=== PATIENT | female | born 1960 | race Caucasian/White ===

== ENCOUNTER 2016-06-21 10:01 | Emergency (ER) | payer MEDICARE, MEDICAID ==
[~2016-06-21] VITALS: Ht 170.2 cm; Wt 122.5 kg
[~2016-06-21 10:01] MED LIST: AC325T PO; ALBU8.5H2 IH; ALBU8CC IH; AMN100CCIP PO; ARIP15TA3 PO; ARIP30TA PO; CALC1POW TOP; CEFD300C PO; CEPH-507 PO; CHOL10002 PO; CHOL2000 PO; CLON0.5T3 PO; CLOT15CR5 TP; CLOT60SP TP; CLPD75T PO; CPR500T PO; CYAN10004 IM; CYCL10TA45 PO; DOCU100C8 PO; ELET40TA PO; FLUC150T PO; FLUC200T5 PO; FLUT15CR TOP; FRSM40T PO; FURO20TA4 PO; FURO40TA4 PO; HYDR-2651 PO; HYDR-3702 PO; HYDR-700 PO; IPRA3AMP11 INH; LORA10TA7 PO; LOSA100T8 PO; LSRT50T PO; LVCR25100 PO; LVT.05T PO; MAGN400O7 PO; METO-311 PO; METO25TA2 PO; MTC10T PO; MTC5V480 PO; MTP50T PO; NF-SOLIF5T PO; NFLYR75C PO; NITR0.3T6 SL; NITR0.3T7 SL; NITR1PAT57 TD; NST15PW TOP; NTR.4SL SL; NYST60PO TOP; OMEP40CA36 PO; OXB5T PO; OXYB5TAB9 PO; OXYC1TAB87 PO; PANT40TA3 PO; PENT400T2 PO; POLY17PO2 PO; POTA10CA43 PO; PRAM0.257 PO; PRAV20TA PO; PRED20TA PO; PREG150C PO; PRM25T PO; PROM25SU10 PR; PROM25TA14 PO; ROPI0.5T4 PO; SITA100T PO; SPRN25T PO; TOLN150S2 TP; TOPI50TA5 PO; TRAZ100T92 PO; TRM50T PO; [UNRECOGNIZED DRUG - CODE] TOP
--- NOTE | 2016-06-21 10:15 | NUR ---
Patient attempting to provide urine specimen.
--- NOTE | 2016-06-21 10:22 | NUR ---
Urine specimen provided by patient and now picked up by lab staff.
[2016-06-21] MEDS ORDERED: SOLI5TAB2 PO (10:40)
[2016-06-21] MEDS ORDERED: HYDROcodone/APAP 5 MG/325 MG (NORCO) TAB PO ONE (10:50)
[2016-06-21 10:57] LABS: BILIRUBIN,URINE Negative (Negative); CLARITY,URINE Clear; COLOR,URINE Yellow; GLUCOSE, URINE (UA) Negative (Negative); LEUKOCYTE ESTERASE ,URINE Negative (Negative); PH,URINE 5.5 (5.0 - 8.0); UROBILINOGEN,URINE 0.2 mg/dL (0.2-1.0)
[2016-06-21 11:41] LABS: BASOPHILS % (AUTO) 0 % (0-2); EOSINOPHILS # (AUTO) 0.1 10^3uL; EOSINOPHILS % (AUTO) 2 % (0-4); LYMPHOCYTES # (AUTO) 1.5 X10^3; MEAN CORPUSCULAR HEMOGLOBIN 27.3 PG (26.0-34.0); MEAN CORPUSCULAR HGB CONC 32.6 g/dL (31.0-37.0); MEAN CORPUSCULAR VOLUME 84 FL (80-100); MEAN PLATELET VOLUME 10.3 FL (6.0-9.5); MONOCYTES # (AUTO) 0.4 X10^3; MONOCYTES % (AUTO) 6 % (3-11); NEUTROPHILS # (AUTO) 3.9 X10^3; NEUTROPHILS % (AUTO) 65 % (51-67); PLATELET COUNT 227 10^3uL (150-450); WHITE BLOOD COUNT 5.93 10^3uL (4.0-11.0)
[2016-06-21 11:52] LABS: ALBUMIN 3.9 g/dL (3.4-5.0); ANION GAP 14.4 MEQ/L (3-15); CALCULATED IONIZED CALCIUM 4.3 mg/dL (3.8-4.6); TOTAL PROTEIN 6.5 g/dL (6.4-8.5)
--- NOTE | 2016-06-21 12:14 | NUR ---
Patient informed staff still waiting on Radiology to do her exam. Patient verbalizes understanding and says she is "okay". Another blanket provided as per pt request.
--- NOTE | 2016-06-21 13:13 | Diagnostic Imaging Report ---
INDICATION: Generalized abdominal pain. DISCUSSION: Supine and upright views of the abdomen were obtained, comparison 05/17/2016. The lungs remain mildly hyperinflated. No focal consolidation or pleural fluid. Normal heart size. Left chest wall [id number] is stable. No evidence of pneumatosis or pneumoperitoneum. There is gas and stool noted within the colon. The colonic stool has decreased from prior exam with mild residual still noted within the ascending colon. No obstruction. No abnormal small bowel loops are identified. No acute osseous abnormality. IMPRESSION: 1. Mild constipation within the proximal colon, decreased from prior exam. Dictated by: Dictated on workstation # [id number]
--- NOTE | 2016-06-21 13:45 | NUR ---
PATIENT HAS BEEN UP TO TOILET AFTER HOLDING ENEMA " LONG I COULD". HAS APPROX 1 CUP OF FORMED/UNFORMED STOOL IN TOILET. RESULT REPORTED TO DR. SWAN.
[2016-06-21] MEDS ORDERED: POLY119P PO (14:27)
[2016-06-21 17:52] VITALS: BP 132/74
[2016-09-04] MEDS ORDERED: LVF500T PO (22:21)
[2016-09-04] MEDS ORDERED: CLIN-79 PO (22:21)
== END 2016-06-21 14:45 | disposition home or self-care (01) ==
LOC: ED 10:03
DX: R30.0 Dysuria (principal); R10.84 Generalized abdominal pain
CPT/HCPCS: 36415; 51798; 74022; 80053; 81003; 82274; 83690; 85025; 86140; 99283; A9270

== ENCOUNTER 2016-06-24 09:34 | Emergency (ER) | payer MEDICARE, MEDICAID ==
[~2016-06-24] VITALS: Ht 170.2 cm; Wt 121.0 kg
[~2016-06-24 09:34] MED LIST changes: +POLY119P PO; +SOLI5TAB2 PO
[2016-06-24] MEDS ORDERED: ONDANSETRON 2 MG/ML (Z0FRAN) 2 ML VIAL IV ONE (10:25)
[2016-06-24] MEDS ORDERED: SODIUM CHLORIDE FLUSH 10 ML SYR IV PRN (10:40)
[2016-06-24 10:48] LABS: BILIRUBIN,URINE Negative (Negative); CLARITY,URINE Cloudy; COLOR,URINE Yellow; GLUCOSE, URINE (UA) Negative (Negative); LEUKOCYTE ESTERASE ,URINE Trace (Negative); PH,URINE 5.5 (5.0 - 8.0); UROBILINOGEN,URINE 0.2 mg/dL (0.2-1.0)
[2016-06-24 10:54] LABS: BASOPHILS % (AUTO) 0 % (0-2); EOSINOPHILS # (AUTO) 0.2 10^3uL; EOSINOPHILS % (AUTO) 2 % (0-4); LYMPHOCYTES # (AUTO) 1.9 X10^3; MEAN CORPUSCULAR HGB CONC 32.2 g/dL (31.0-37.0); MEAN CORPUSCULAR VOLUME 84 FL (80-100); MEAN PLATELET VOLUME 10.6 FL (6.0-9.5); MONOCYTES # (AUTO) 0.4 X10^3; MONOCYTES % (AUTO) 6 % (3-11); NEUTROPHILS % (AUTO) 62 % (51-67); PLATELET COUNT 224 10^3uL (150-450); WHITE BLOOD COUNT 6.42 10^3uL (4.0-11.0)
[2016-06-24 10:59] LABS: ALBUMIN 3.9 g/dL (3.4-5.0); ANION GAP 14.1 MEQ/L (3-15); CALCULATED IONIZED CALCIUM 4.1 mg/dL (3.8-4.6); TOTAL PROTEIN 6.9 g/dL (6.4-8.5)
[2016-06-24] MEDS ORDERED: HYDR-700 PO (11:10)
[2016-06-24 11:15] LABS: CALCIUM OXALATE CRYSTALS,UR 3+ /HPF; URINE CENTRIFUGED VOLUME 12 mL
--- NOTE | 2016-06-24 11:27 | Diagnostic Imaging Report ---
PROCEDURE: CT abdomen and pelvis without contrast. TECHNIQUE: Multiple contiguous axial images were obtained through the abdomen and pelvis without the use of intravenous contrast. INDICATION: Abdominal pain. FINDINGS: The lung bases are clear. Liver appears normal. The gallbladder is decompressed. The pancreas is normal. The spleen is not enlarged. The adrenals and kidneys appear normal. This is calcific atherosclerosis of the aorta with no aneurysm. There is a small ventral hernia in the left lower abdomen at the level of the umbilicus. The uterus is surgically absent. Urinary bladder appears normal. There is no intraperitoneal free air or free fluid. IMPRESSION: Small left lower quadrant ventral hernia. CT abdomen and pelvis otherwise unremarkable. Dictated by: Dictated on workstation # [id number]
[2016-06-24] MEDS ORDERED: PANT40TA3 PO (11:58)
[2016-06-24] MEDS ORDERED: LSRT50T PO (11:58)
[2016-06-24] MEDS ORDERED: CLOP75TA28 PO (11:58)
[2016-06-24] MEDS ORDERED: SULF1TAB35 PO (13:15)
[2016-06-24 14:28] VITALS: BP 143/88
[2016-09-04] MEDS ORDERED: LVF500T PO (22:21)
[2016-09-04] MEDS ORDERED: CLIN-79 PO (22:21)
== END 2016-06-24 13:59 | disposition home or self-care (01) ==
LOC: ED 09:35
DX: R19.7 Diarrhea, unspecified (principal); N39.0 Urinary tract infection, site not specified; R10.84 Generalized abdominal pain
CPT/HCPCS: 36415; 74176; 80053; 81003; 81015; 82274; 83690; 85025; 87045; 87046; 87077; 87088; 87147; 87177; 87186; 87209; 87324; 87449; 89055; 96361; 96374; 99283; J1642; J2405; J7030

== ENCOUNTER → 2016-07-01 | Outpatient (CLI) | payer MEDICARE, MEDICAID ==
[~2016-07-01] MED LIST changes: +CLIN-79 PO; +CLOP75TA28 PO; +LVF500T PO; +SULF1TAB35 PO
--- NOTE | 2016-07-01 13:01 | Diagnostic Imaging Report ---
PROCEDURE: MRI left upper extremity without contrast. TECHNIQUE: Multiplanar, multisequence MR imaging of the left shoulder was performed without contrast. COMPARISON: None available. INDICATION: Left shoulder pain. Recent fall. FINDINGS: Rotator cuff: There is mild tendinopathy of the supraspinatus, infraspinatus and subscapularis. There is superimposed low-grade partial-thickness tearing of the bursal fibers of the posterior supraspinatus and anterior infraspinatus. There is also low-grade partial-thickness tearing of the deep superior fibers of the subscapularis. The teres minor is normal. No rotator cuff muscle atrophy. Glenoid labrum: There is a tear in the superior labrum near the biceps anchor with an associated multilobulated paralabral cyst present. More lateral component of the cyst measures approximately 12 x 5 mm and is located at the level of the glenoid rim. There is an additional component of the cyst which is located in the supratubercle region of the glenoid and measures 12 x 6 mm. There is no cyst extension into the suprascapular notch. There is no evidence of denervation injury of the rotator cuff musculature. In the posterior labrum, there is mild degenerative surface fraying of free edge. Long head of biceps: Long head of the biceps is normal in position and intact. Paralabral cyst does not extend into the anchor of the biceps tendon. Bones and cartilage: No fracture or Hill-Sachs deformity of the humeral head. The acromioclavicular joint is normal in alignment with mild degenerative capsular hypertrophy. No high-grade chondromalacia in the glenohumeral joint. Soft tissues: No MRI findings to suggest adhesive capsulitis. No glenohumeral joint effusion. No significant subacromial/subdeltoid bursitis. IMPRESSION: 1. Superior labral tear with a multilobulated paralabral cyst at the superior aspect of the glenoid. The two dominant components of the cyst each measure approximately 12 x 6 mm, as described above. The paralabral cyst does not extend into the suprascapular notch and there is no evidence of rotator cuff muscle denervation injury. 2. There is tendinopathy of the supraspinatus, infraspinatus and subscapularis. There is superimposed low-grade partial-thickness tearing of the bursal surface fibers of the supraspinatus and infraspinatus and of the deep fibers of the subscapularis. No high-grade partial or full-thickness rotator cuff tear. Dictated by: Dictated on workstation # [id number]
== END ==
LOC: RAD 09:02
PROVIDERS: ATTEND Orthopaedic Surgery
DX: M25.512 Pain in left shoulder (principal); M75.112 Incomplete rotator cuff tear or rupture of left shoulder, not specified as traumatic
CPT/HCPCS: 73221

== ENCOUNTER 2016-07-28 12:35 | Emergency (ER) | payer MEDICARE, MEDICAID ==
[~2016-07-28] VITALS: Ht 170.2 cm; Wt 124.4 kg
[2016-07-28 13:32] VITALS: BP 145/108
== END 2016-07-28 13:30 | disposition home or self-care (01) ==
LOC: ED 12:36
DX: I99.8 Other disorder of circulatory system (principal); R23.3 Spontaneous ecchymoses
CPT/HCPCS: 99281; 99282

== ENCOUNTER → 2016-07-28 | Outpatient (CLI) | payer MEDICARE, MEDICAID ==
[2016-07-28 12:40] LABS: MEAN CORPUSCULAR HEMOGLOBIN 27.3 PG (26.0-34.0); MEAN CORPUSCULAR HGB CONC 33.2 g/dL (31.0-37.0); MEAN CORPUSCULAR VOLUME 82 FL (80-100); MEAN PLATELET VOLUME 10.2 FL (6.0-9.5); PLATELET COUNT 219 10^3uL (150-450); WHITE BLOOD COUNT 6.91 10^3uL (4.0-11.0)
[2016-07-28 13:17] LABS: ALBUMIN 4.4 g/dL (3.4-5.0); ANION GAP 16.7 MEQ/L (3-15); TOTAL PROTEIN 7.7 g/dL (6.4-8.5)
[2016-07-28 13:28] LABS: ERYTHROCYTE SEDIMENTATION RT* 18 mm/hr (0-23)
[2016-07-28 13:32] LABS: BAND NEUTROPHILS % 0 % (0-6); EOSINOPHILS % 0 % (0-4); LYMPHOCYTES # 2.1 #; MONOCYTES # 0.2 #; MONOCYTES % 4 % (3-11); RBC MORPH NORMAL (NORMAL); SEGMENTED NEUTROPHILS % 66 % (51-67); TOTAL CELLS COUNTED 100
== END ==
LOC: LAB 12:18
PROVIDERS: ATTEND Internal Medicine Infectious Disease
DX: L03.115 Cellulitis of right lower limb (principal); I89.0 Lymphedema, not elsewhere classified; Z79.2 Long term (current) use of antibiotics
CPT/HCPCS: 36415; 80053; 85007; 85027; 85652; 86140

== ENCOUNTER → 2016-08-09 | Outpatient (CLI) | payer MEDICARE, MEDICAID | LOC: LAB 08:20 | PROVIDERS: ATTEND Orthopaedic Surgery | DX: Z86.14 Personal history of Methicillin resistant Staphylococcus aureus infection (principal) | CPT/HCPCS: 87081 ==

== ENCOUNTER → 2016-08-20 | Outpatient (CLI) | payer MEDICARE, MEDICAID ==
[2016-08-20 15:10] LABS: ANION GAP 13.4 MEQ/L (3-15)
== END ==
LOC: LAB 14:17
PROVIDERS: ATTEND Orthopaedic Surgery
DX: I10 Essential (primary) hypertension (principal)
CPT/HCPCS: 36415; 80048; 93005

== ENCOUNTER → 2016-08-23 | Outpatient (CLI) | payer MEDICARE, MEDICAID | LOC: LAB 09:37 | PROVIDERS: ATTEND Orthopaedic Surgery | DX: Z86.14 Personal history of Methicillin resistant Staphylococcus aureus infection (principal) | CPT/HCPCS: 87081 ==

== ENCOUNTER 2016-09-04 19:47 | Emergency (ER) | payer MEDICARE, MEDICAID ==
[~2016-09-04] VITALS: Ht 170.2 cm; Wt 129.6 kg
[2016-09-04 20:40] LABS: BASOPHILS % (AUTO) 0 % (0-2); EOSINOPHILS # (AUTO) 0.2 10^3uL; EOSINOPHILS % (AUTO) 2 % (0-4); MEAN CORPUSCULAR VOLUME 84 FL (80-100); MEAN PLATELET VOLUME 10.3 FL (6.0-9.5); MONOCYTES # (AUTO) 0.4 X10^3; MONOCYTES % (AUTO) 6 % (3-11); NEUTROPHILS # (AUTO) 4.9 X10^3; NEUTROPHILS % (AUTO) 65 % (51-67); PLATELET COUNT 229 10^3uL (150-450)
[2016-09-04 20:41] LABS: MEAN CORPUSCULAR HEMOGLOBIN 26.8 PG (26.0-34.0)
[2016-09-04 20:50] LABS: ALBUMIN 3.6 g/dL (3.4-5.0); ANION GAP 11.4 MEQ/L (3-15); CALCULATED IONIZED CALCIUM 4.2 mg/dL (3.8-4.6); TOTAL PROTEIN 6.7 g/dL (6.4-8.5)
[2016-09-04] MEDS ORDERED: CLINDAMYCIN 150 MG (CLEOCIN) CAP PO ONE (22:15)
[2016-09-04] MEDS ORDERED: LEVOFLOXACIN 250 MG TAB (LEVAQUIN) PO SCH (22:15)
[2016-09-04 22:39] VITALS: BP 141/90
== END 2016-09-04 22:35 | disposition home or self-care (01) ==
LOC: ED 19:48
DX: L03.115 Cellulitis of right lower limb (principal); Z86.14 Personal history of Methicillin resistant Staphylococcus aureus infection
CPT/HCPCS: 36415; 80053; 85025; 87070; 99283; A9270; 87077; 87147; 87186

== ENCOUNTER → 2016-10-01 | Outpatient (CLI) | payer MEDICARE, MEDICAID ==
[~2016-10-01] MED LIST changes: -TOPI50TA5 PO; +TOPI50TA86 PO
--- NOTE | 2016-10-01 16:47 | Diagnostic Imaging Report ---
Indication: Back pain. Scoliosis 3 views of the thoracic spine shows mild dextroscoliosis of less than 10?. There is dorsal kyphosis but no spondylolisthesis is seen. There is only mild spondylosis. No fracture is evident. Impression: There is mild scoliosis with mild dorsal kyphosis. No acute abnormality is evident. Dictated by: Dictated on workstation # [id number]
--- NOTE | 2016-10-01 16:47 | Diagnostic Imaging Report ---
Indication: Back pain 2 views of the lumbar spine shows normal height and alignment of the vertebral bodies. Disc spaces are well-maintained. There is no spondylosis. There is no fracture. Impression: No significant abnormality is seen. Dictated by: Dictated on workstation # [id number]
--- NOTE | 2016-10-01 16:48 | Diagnostic Imaging Report ---
Indication: Neck pain 3 views of the cervical spine shows normal height and alignment of the vertebral bodies. Disc spaces are well-maintained. There is no spondylosis. There is no fracture. Impression: No significant abnormality is seen. Dictated by: Dictated on workstation # [id number]
== END ==
LOC: RAD 16:08
PROVIDERS: ATTEND Physician Assistant
DX: M54.89 Other dorsalgia (principal)
CPT/HCPCS: 72040; 72072; 72100

== ENCOUNTER 2016-10-13 07:58 | Day surgery (SDC) | payer MEDICARE, MEDICAID ==
--- NOTE | 2016-10-11 08:37 | NUR ---
PATIENT SCHEDULED TO BE HERE AT 0745. PATIENT HAS STILL NOT ARRIVED. ATTEMPT #2 TO GET AHOLD OF PATIENT WITH NO ANSWER. ANSWERING MACHINE DOES NOT SAY PATIENT'S NAME. NO MESSAGE LEFT.
[~2016-10-13] VITALS: Ht 170.2 cm; Wt 106.0 kg
[2016-10-13] VITALS (7 sets, daily range): BP systolic 134–178; BP diastolic 88–109
[~2016-10-13 07:58] MED LIST changes: +ALFENTANIL 500 MCG/ML (ALFENTA) 5 ML AMP IV ONE; +AMIT100T2 PO; +LACTATED RINGERS 1,000 ML IV SCH; +MIDAZOLAM 2 MG/2 ML (VERSED) VIAL ONE; +MIRA50TA PO; +PROPOFOL 20 ML IV ONE; +SODIUM CHLORIDE FLUSH 3 ML SYR IV PRN
[2016-10-13] MEDS ORDERED: MIDAZOLAM 2 MG/2 ML (VERSED) VIAL ONE (09:18)
[2016-10-13] MEDS ORDERED: PROPOFOL 20 ML IV ONE (09:19)
[2016-10-13] MEDS ORDERED: ALFENTANIL 500 MCG/ML (ALFENTA) 5 ML AMP IV ONE (09:19)
--- NOTE | 2016-10-13 13:38 | OPERATIVE REPORT ---
DATE OF OPERATION: 10/13/2016 PRE-OPERATIVE DIAGNOSIS: 1. Colon screening. 2. Family history of colon polyps. POST-OPERATIVE DIAGNOSIS: Normal colon OPERATIVE PROCEDURE: Total colonoscopy SURGEON: Brennan Dyer MD ANESTHESIA: IV conscious sedation, Monitored Anesthesia Services POSITION: Left lateral decubitus FINDINGS: 1. Normal colon mucosa. 2. Fair prep (after double colonoscopy prep). OPERATIVE NOTE: Following satisfactory induction of analgesia a digital rectal exam was performed. This revealed normal sphincter tone with no palpable rectal mass. Next the colonoscope was introduced per rectum and advanced under CO2 insufflation and direct vision to the cecum. The cecum was identified by convergence of the teniae, ileocecal valve, and palpation/transillumination of the right lower quadrant. Warp Tension Tester photographs were obtained. There were several areas of pooled liquid stool that required suction and irrigation, however, this allowed satisfactory inspection of the colon mucosa. The above areas were again carefully inspected as colonoscope was slowly withdrawn. Retroflexed view of the rectum was normal. Excess insufflated CO2 was evacuated and the scope removed. The patient tolerated the procedure well and transferred to recovery in stable condition. RECOMMENDATIONS: In the absence of symptoms, I would recommend repeat screening colonoscopy in 5 years due to her family history. In addition, I would recommend double (over 2 days) prep prior to colonoscopy in the future.
== END 2016-10-13 13:40 | disposition home or self-care (01) ==
LOC: ASC 07:58
PROVIDERS: ATTEND Surgery
DX: Z12.11 Encounter for screening for malignant neoplasm of colon (principal); Z83.71 Family history of colonic polyps; F41.9 Anxiety disorder, unspecified; I10 Essential (primary) hypertension; G47.33 Obstructive sleep apnea (adult) (pediatric); E11.9 Type 2 diabetes mellitus without complications; E03.9 Hypothyroidism, unspecified; J44.9 Chronic obstructive pulmonary disease, unspecified; J45.909 Unspecified asthma, uncomplicated; Z79.02 Long term (current) use of antithrombotics/antiplatelets; Z79.84 Long term (current) use of oral hypoglycemic drugs
CPT/HCPCS: G0105; J2250; J7120

== ENCOUNTER 2016-10-31 23:37 | Emergency (ER) | payer MEDICARE, MEDICAID ==
[~2016-10-31] VITALS: Ht 170.2 cm; Wt 131.8 kg
[~2016-10-31 23:37] MED LIST changes: -ALFENTANIL 500 MCG/ML (ALFENTA) 5 ML AMP IV ONE; -LACTATED RINGERS 1,000 ML IV SCH; -MIDAZOLAM 2 MG/2 ML (VERSED) VIAL ONE; -PROPOFOL 20 ML IV ONE; -SODIUM CHLORIDE FLUSH 3 ML SYR IV PRN
--- OUTSIDE RECORDS SUMMARY | 2016-10-31 23:43 | XMS REPORT | Continuity of Care Document ---
Author Author [facility] Organization [facility] Address Unknown Phone Unavailable Care Team Providers Care Technical Operations Manager Name Role Phone JOELLEN GUAMAN MD PCP [phone] Insurance Providers Payer Name Policy Number Subscriber Name Relationship Medicare A And B [id number] Josiane Ashley 18 Self / Same As Patient [facility] [employer] [id number] Josiane Ashley 18 Self / Same As Patient Advance Directives Directive Response Recorded Date/Time Advanced Directives No 01/20/16 11:15pm Problems Active Problems Medical Problem Onset Date Status Acute cervical myofascial strain Unknown Acute Acute thoracic myofascial strain Unknown Acute Bilateral cellulitis of lower leg Unknown Chronic Bradycardia with 41-50 beats per minute ~04/07/2015 Acute Chronic neck and back pain Unknown Acute Colitis Unknown Acute Difficulty walking Unknown Acute Dysphagia Unknown Acute Hypotension ~04/07/2015 Acute Tinea corporis Unknown Resolved UTI (urinary tract infection) Unknown Resolved Varicose veins of left lower extremity ~04/07/2015 Acute Weakness of both arms Unknown Acute Weakness of both lower extremities Unknown Acute Medications Current Home Medications Medication Dose Units Route Directions Days/Qty Instructions Start Date Levothyroxine Sodium (Synthroid) 50 Mcg 50 Mcg ORAL Daily@0700 01/25 Clonazepam 0.5 Mg 0.5 Mg ORAL Twice A Day 01/25/15 Topiramate 50 Mg 50 Mg ORAL Twice A Day 01/25/15 Cyclobenzaprine Hcl 10 Mg 10 Mg ORAL Twice A Day 01/25/15 Promethazine Hcl 25 Mg 25 Mg ORAL Every 4HRS as needed for Nausea/Vomiting 01/25/15 Cyanocobalamin (Vitamin B-12) 1,000 Mcg/1 Ml 1,000 Mcg INTAMUSCULAR Monthly 01/25/15 Nystatin 60 Gm 1 Applic TOPICAL Three Times A Day as needed for Redness 01/25/15 Aripiprazole 30 Mg 30 Mg ORAL Daily 04/07/15 Pravastatin Sodium 20 Mg 20 Mg ORAL Bedtime 10/08/15 Losartan Potassium (Cozaar) 100 Mg 100 Mg ORAL Daily 10/08/15 Metoclopramide Hcl 10 Mg 10 Mg ORAL Three Times A Day 10/08/15 Furosemide 40 Mg 40 Mg ORAL Daily 10/08/15 Loratadine 10 Mg 10 Mg ORAL Daily as needed for Allergies 10/08/15 Spironolactone (Aldactone) 25 Mg 25 Mg ORAL Daily 10/08/15 Trazodone Hcl 100 Mg 200 Mg ORAL Bedtime 10/08/15 Albuterol Sulfate 8.5 Gm 2 Puff RESPIRATORY (INHALATION) Twice A Day as needed for Dyspnea 10/10/15 Clopidogrel Bisulfate (Plavix) 75 Mg 75 Mg ORAL Daily@1200 10/10/15 Pantoprazole Sod 40 Mg 40 Mg ORAL Daily@0700 01/20/16 Oxybutynin Chloride 5 Mg 5 Mg ORAL Three Times A Day 01/20/16 Cholecalciferol 1,000 Unit 1,000 Unit ORAL Daily 01/21/16 Nitroglycerin (Nitrostat) 0.4 Mg 0.4 Mg SUBLINGUAL Every 5 Min as needed for Chest Pain 01/21/16 Metoprolol Tartrate 25 Mg 25 Mg ORAL Twice A Day 01/21/16 Pregabalin 150 Mg 150 Mg ORAL Twice A Day 01/21/16 Pramipexole Di-Hcl 0.25 Mg 0.25 Mg ORAL Three Times A Day 01/21/16 Past Home Medications Medication Directions Ordered Status Omeprazole 40 Mg Capsule.dr, 20 Mg Oral Twice A Day 01/25/15 Discontinued Sitagliptin Phosphate 100 Mg Tablet, 100 Mg Oral As Directed 01/25/15 Discontinued Furosemide 40 Mg Tablet, 40 Mg Oral As Directed 01/25/15 Discontinued Eletriptan Hydrobromide 40 Mg Tablet, 40 Mg Oral As Directed 01/25/15 Discontinued Potassium Chloride 10 Meq Capsule.er, 10 Meq Oral Daily 01/25/15 Discontinued Aripiprazole 15 Mg Tablet, 15 Mg Oral As Directed 01/25/15 Discontinued Ciprofloxacin 500 Mg Tablet, 500 Mg Oral As Directed 01/25/15 Discontinued Metoclopramide Hcl 10 Mg Tablet, 10 Mg Oral Three Times A Day 01/25/15 Discontinued Promethazine Hcl 25 Mg Supp, 25 Mg Rectal As Needed 01/25/15 Discontinued Pregabalin 75 Mg Capsule, 150 Mg Oral Twice A Day 01/25/15 Discontinued Cholecalciferol (Vitamin D3) 2,000 Unit Capsule, 1000 Unit Oral Daily Discontinued Prednisone 20 Mg Tablet, 20 Mg Oral Daily 02/18/15 Discontinued Hydroxyzine Hcl 25 Mg Tablet, 25 Mg Oral Every 8HRS as needed for Itching 07/04 Discontinued Hydrocodone Bit/Acetaminophen 1 Each Tablet, 1 Each Oral Every 4HRS as needed for Severe Pain 02/18/15 Discontinued Fluconazole 150 Mg Tablet, 150 Mg Oral Daily 02/18/15 Discontinued Cephalexin 500 Mg Capsule, 500 Mg Oral Three Times A Day 03/09/15 Discontinued Cefdinir (Omnicef) 300 Mg Capsule, 300 Mg Oral Twice A Day 03/24/15 Discontinued Oxybutynin Chloride 5 Mg Tab, 5 Mg Oral Daily 06/17/15 Discontinued Acetaminophen/Hydrocodone Bitart 1 Each Tablet, 1-2 Tab Oral Every 6 Hours as needed for Pain 06/17/15 Discontinued Oxycodone/Acetaminophen 1 Tab Tablet, 1-2 Tab Oral Three Times A Day as needed for Pain 06/22/15 Discontinued Clopidogrel Bisulfate (Plavix) 75 Mg Tablet, 75 Mg Oral Daily 10/02/15 Discontinued Calcium Acetate/Aluminum Sulf 1 Each Powd.pack, 1 Each Topical As Needed Discontinued Albuterol Sulfate 90 Mcg/1 Puff Hfa.aer.ad, 90 Mcg Respiratory (Inhalation) As Needed 10/08/15 Discontinued Tramadol Hcl (Ultram) 50 Mg Tablet, 1-2 Tab Oral Every 6 Hours as needed for Pain 10/08/15 Discontinued Carbidopa/Levodopa (Sinemet 25MG-100MG) 1 Each Tablet, 1 Ea Oral Twice A Day 10/08/15 Discontinued Metoprolol Tartrate (Lopressor) 50 Mg Tablet, 50 Mg Oral Daily 10/08/15 Discontinued Nitroglycerin 1 Each Patch.td24, 1 Each Transdermal Daily 10/08/15 Discontinued Pentoxifylline 400 Mg Tablet.er, 400 Mg Oral Twice A Day 10/08/15 Discontinued Pramipexole Di-Hcl 0.25 Mg Tablet, 0.25 Mg Oral Three Times A Day 01/20/16 Discontinued Ropinirole Hcl (Requip) 0.5 Mg Tablet, 0.5 Mg Oral Three Times A Day Discontinued Nitroglycerin (Nitroquick) 0.3 Mg Tab.subl, 0.3 Mg Sublingual As Directed 08/05 Discontinued Fluconazole 200 Mg Tablet, 200 Mg Oral As Directed 01/20/16 Discontinued Hydroxyzine Hcl 25 Mg Tablet, 25 Mg Oral Twice A Day 01/20/16 Discontinued Social History Social History Problem Response Recorded Date/Time Onset Date Status Exposure to occupational hazards No 01/20/2016 11:15pm Query Response Start Date Stop Date Smoking Status Former smoker Hospital Discharge Instructions Current inpatient/outpatient. Discharge instructions are currently unavailable. Plan of Care Prescriptions Functional Status No functional status results. Allergies, Adverse Reactions, Alerts Allergen Type Severity Reaction Status Last Updated Aspirin Allergy Unknown Active 12/25/15 Gabapentin Allergy Unknown Active 12/25/15 ketorolac Allergy Unknown Active 12/25/15 eszopiclone Allergy Unknown Active 12/25/15 Pear Allergy Unknown Active 01/20/16 Blood Thinners Allergy Unknown Active 01/25/15 Immunizations Name Given Type Status Date Influenza Vaccine Received if Current 02/16/15 Historical Historical Vital Signs No known vital signs results. Results Pending Laboratory Results Test Name Collection Date/Time Procedures Procedure Status Date Provider(s) URINALYSIS AUTO W/O SCOPE Completed 03/05/16 Encounters Encounter Location Arrival/Admit Date Discharge/Depart Date Attending Provider Registered Referred [facility] 03/05/16 4:31pm Jonathan Short MD Discharged Recurring [facility] 12/25/15 12:50pm 03/24/16 11:59pm JOELLEN GUAMAN MD
[2016-10-31 23:50] VITALS: BP 180/90
[2016-11-01 00:35] LABS: BILIRUBIN,URINE Negative (Negative); CLARITY,URINE Clear; COLOR,URINE Yellow; GLUCOSE, URINE (UA) Negative (Negative); LEUKOCYTE ESTERASE ,URINE Trace (Negative); PH,URINE 5.5 (5.0 - 8.0); UROBILINOGEN,URINE 0.2 mg/dL (0.2-1.0)
[2016-11-01 01:01] LABS: URINE CENTRIFUGED VOLUME <10mL Unspun
[2016-11-01] MEDS ORDERED: SULF1TAB35 PO (01:11)
[2016-11-01] MEDS ORDERED: PHEN-640 PO (01:11)
[2016-11-01] MEDS: SULFAMETHOXAZOLE/TRIMETHOPRIM 800-160 MG (SEPTRA DS) TAB PO ONE (01:21)
[2016-11-01] MEDS: PHENAZOPYRIDINE 100 MG (PYRIDIUM) TABLET PO ONE (01:21)
== END 2016-11-01 01:25 | disposition home or self-care (01) ==
LOC: ED 23:40
DX: N39.0 Urinary tract infection, site not specified (principal)
CPT/HCPCS: 81003; 81015; 87088; 87147; 99282; A9270